=== PATIENT | male | born 1975 | race Two or more races ===

== ENCOUNTER 2016-10-04 10:49 | Emergency (ER) | payer MEDICAID ==
--- NOTE | 2016-10-04 11:01 | ED Physician Chart ---
Chief Complaint/HPI - Patient Information Date Seen:: 10/04/16 Time Seen:: 11:00 Chief Complaint:: Feeling anxious for about one week. History of Present Illness:: Pt has h/o anxiety disorder. Pt has been followed by Dr. Benton and has been treated with Xanax. Pt states that he has been out of his Xanax for about one week. Pt has been feeling anxious. Pt is otherwise well without subjective complaint. Allergies:: Allergies Allergy/AdvReac Type Severity Reaction Status Date / Time No Known Allergies Allergy Verified 03/27/16 10:04 Vitals:: see Nurse Note. Historian:: Patient Family MD/PCP:: Dr. Benton (PCP LMP:: N/A Review:: Nurse's Note Reviewed Review of Systems - Review of Systems General/Constitutional: No fever, No chills, No weight loss, No weakness, No diaphoresis, No edema, No loss of appetite Skin: No skin lesions, No rash, No bruising Head: No headache, No light-headedness Eyes: No loss of vision, No pain, No diplopia ENT: No earache, No nasal drainage, No sore throat, No tinnitus Neck: No neck pain, No swelling, No thyromegaly, No stiffness, No mass noted Cardio Vascular: No chest pain, No palpitations, No PND, No orthopnea, No edema Pulmonary: No SOB, No cough, No sputum, No wheezing GI: No nausea, No vomiting, No diarrhea, No pain, No melena, No hematochezia, No constipation, No hematemesis G/U: No dysuria, No frequency, No hematuria Musculoskeletal: No bone or joint pain, No back pain, No muscle pain Endocrine: No polyuria, No polydipsia Psychiatric: Prior psych history, Depression, Anxiety, No suicidal ideation, No homicidal ideation, No auditory hallucination, No visual hallucination Hematopoietic: No bruising, No lymphadenopathy Allergic/Immuno: No urticaria, No angioedema Neurological: No syncope, No focal symptoms, No weakness, No paresthesia, No headache, No seizure, No dizziness, No confusion, No vertigo Past Medical History - Past Medical History Past Medical History: Other (obesity) Social History: Smoker (1 ppd. Pt has been informed about health risks associated with chronic tobacco use and has been advised to quit. Pt has been encouraged to enroll in a smoking cessation program. Pt acknowledges understanding.), Legally, Other (lives with his mother.) Employment:: unemployed. Surgical History: Hernia (Ventral hernia repair '.), other (Gastric bypass surgery '10.) Psychiatricy History: Depression, Other (h/o anxiety disorder.) Medication: Reviewed Family Medical History - Family Member Mother History Unknown: Yes Ethnicity: Living Status: Unknown Physical Exam - Physical Examination General/Constitutional: Awake, Well-developed, well-nourished, Alert, No distress, GCS 15, Non-toxic appearing, Ambulatory Other Gen/Cons comments:: Breathes comfortably, speaks clearly, and ambulates without difficulty. Head: Atraumatic Eyes: Lids, conjuctiva normal, PERRL, EOMI Skin: Well hydrated, No lymphadenopathy ENMT: External ears, nose nl, Nasal exam nl, Lips, teeth, gums nl, Oropharynx nl Neck: Nontender, Full ROM w/o pain, No JVD, No nuchal rigidity, No mass, No stridor Respiratory: Nl effort/Exclusion, Clear to Auscultation, No Wheeze/Rhonchi/Rales Cardio Vascular: RRR, No murmur, gallop, rubs GI: No tenderness/rebounding/guarding, No organomegaly, No hernia, Normal BS's, Nondistended, No mass/bruits, No McBurney tenderness Other GI comments:: Abdomen is obese but soft. Extremities: No tenderness or effusion, Full ROM, normal strength in all extremities, No edema, Normal digits & nails Neuro/Psych: Alert/oriented (oriented x 3), Normal gait, No focal deficits ED Septic Shock - . Is Septic Shock (SBP<90, OR Lactate>4 mmol\L) present?: No Reassessment (Disposition) - Reassessment Reassessment:: 1225 I spoke with pt's mother on the phone per pt's request earlier at about 1220. She was explained about the importance of pt's need for close follow up with his PCP Dr. Benton as well as his psychiatrist Dr. Hernandes. She as well as the patient have been informed about the addictive potential as well as significant adverse effects of Xanax. Pt and his mother both acknowledged understanding. Pt related that his mother will come to ER, so she can drive him home in the event that he is to be given Xanax for anxiety at the ER. 1315 Just informed by nursing staff that pt had eloped. Pt did not wait to speak with me prior to departure from this hospital Reassessment Condition:: Improved - Diagnosis Diagnosis:: h/o anxiety disorder, stable. - Patient Disposition Discharge/Transfer:: Elope/AWOL Condition at Disposition:: Stable, Improved ED Discharge Plan - Patient Disposition Admit/Discharge/Transfer: PATIENT ELOPED Condition at Disposition: Stable
== END 2016-10-04 12:31 | disposition left against medical advice (07) ==
LOC: ER 10:49
DX: F41.9 Anxiety disorder, unspecified (principal); F17.200 Nicotine dependence, unspecified, uncomplicated
CPT/HCPCS: Z7502